=== PATIENT | male | born 1940 | race Caucasian/White ===

== ENCOUNTER 2016-06-03 17:56 | Emergency (ER) | payer MEDICARE ==
[~2016-06-03] VITALS: Ht 172.7 cm; Wt 80.0 kg
[~2016-06-03 17:56] MED LIST: ASPI325T PO; BENI40TA30 PO; CELE200 PO; NAPR220T95 PO
[2016-06-03 17:58] VITALS: BP 202/90; PULSE 67; RESP 14; TEMP 97.9; O2SAT 97
== END 2016-06-03 18:39 | disposition left against medical advice (07) ==
LOC: NED 17:56
DX: M25.511 Pain in right shoulder (principal)
CPT/HCPCS: 99281